=== PATIENT | female | born 1975 | race African-American/Black ===

== ENCOUNTER 2018-07-19 15:55 | Emergency (ER) | payer SELFPAY ==
[~2018-07-19] VITALS: Ht 162.6 cm; Wt 70.3 kg
[2018-07-19 16:04] VITALS: BP 118/78
[2018-07-19] MEDS ORDERED: KENALOG 0.5% CR15 GM TP (16:54)
[2018-07-19 17:32] VITALS: BP 118/78
--- NOTE | 2018-07-19 20:05 | Emergency Room Report ---
History of Present Illness General Chief Complaint: Skin Rash/Abscess Source: Patient Present Illness HPI Patient is a 44-year-old female presenting for rash under arms. She noticed this 2 days prior. She denies using any new products. She describes this as itchy, no pain. She denies other symptoms including fever, chills, SOB, CP Allergies: Coded Allergies: No Known Allergies (Unverified , 07/19/18) Patient History Past Medical History: see triage record Pertinent Family History: none Last Menstrual Period: 07/14/18 Reviewed Nursing Documentation: PMH: Agreed; PSxH: Agreed Nursing Documentation-PMH Past Medical History: No Stated History Review of Systems All Other Systems: negative except mentioned in HPI Physical Exam Vital Signs Date Time Temp Pulse Resp B/P (MAP) Pulse Ox O2 Delivery O2 Flow Rate FiO2 07/19/18 16:04 98.4 88 18 118/78 99 Room Air Sp02 EP Interpretation: reviewed, normal General Appearance: no apparent distress, alert, GCS 15, non-toxic Head: normocephalic, atraumatic Eyes: bilateral eye normal inspection, bilateral eye PERRL Musculoskeletal: back normal, gait/station normal, normal range of motion, non- tender Neurologic: alert, oriented x3, responsive, motor strength/tone normal, sensory intact, speech normal Psychiatric: judgement/insight normal, memory normal, mood/affect normal, no suicidal/homicidal ideation Skin: warm/dry, normal turgor, rash - erythema macular bilat axilla Lymphatic: no adenopathy Medical Decision Making PA Attestation Dr. Finch is my supervising physician. Patient management was discussed with my supervising physician Diagnostic Impression: Primary Impression: Dermatitis ER Course Patient is a 44-year-old female presenting for rash under arms Ddx considered include but not limited to contact dermatitis, eczema, cellulitis, hidradenitis suppurativa, among others PE: Afebrile. NAD There is bilateral macular erythema to the axillas. Nontender. No edema. No scaling. No papules. Patient will be given prescription for triamcinolone. She is told to stop using antiperspirant and to follow-up with primary doctor as soon as possible. ER precautions are given Last Vital Signs Date Time Temp Pulse Resp B/P (MAP) Pulse Ox O2 Delivery O2 Flow Rate FiO2 07/19/18 17:32 98.4 72 18 118/78 99 Room Air Status: improved Disposition: HOME, SELF-CARE Condition: Improved Scripts Triamcinolone Acet (Triamcinolone Acetonide) 15 Gm Cream..g. 1 APPLIC TP TID, #15 GM Prov: SHELTON MEZA 07/19/18 Referrals: NOT CHOSEN IPA/MD,REFERRING (PCP) Patient Instructions: Rash Additional Instructions: I discussed my findings with the patient. All questions and concerns have been answered. Treatment and medication compliance have been addressed. I advised the patient that they need to follow up with PMD in 3-5 days. Return to ED if symptoms worsen, new symptoms arise, or if needed for any reason. Patient verbalized understanding of discharge instructions. SHELTON MEZA Jul 19, 2018 20:05
== END 2018-07-19 17:32 | disposition home or self-care (01) ==
LOC: EMR 16:59
DX: L30.9 Dermatitis, unspecified (principal)
CPT/HCPCS: 99282